=== PATIENT | female | born 1955 | race Caucasian/White ===

== ENCOUNTER 2017-04-17 10:57 | Day surgery (SDC) | payer OTHER ==
[~2017-04-17 10:57] MED LIST: Buffered Lidocaine 0.9% SYRIN* 5 ML/SYR SYRINGE INTRADERM ONE
[2017-04-17] MEDS ORDERED: Buffered Lidocaine 0.9% SYRIN* 5 ML/SYR SYRINGE ONE (11:15)
[2017-04-17] MEDS ORDERED: fentaNYL* 50 MCG/ML 2 ML VIAL (100 MCG VIAL) ONE (11:35)
[2017-04-17] MEDS ORDERED: Midazolam* 1 MG/ML 2 ML VIAL (2 MG) ONE ×2 (11:35)
[2017-04-17] MEDS ORDERED: Propofol* 10 MG/ML 20 ML BTL IV PUSH ONE (11:39)
[2017-04-17] MEDS ORDERED: Ondansetron INJ* 2 MG/ML VIAL ONE (11:39)
[2017-04-17] MEDS ORDERED: Ketorolac INJ* 30 MG/ML 1 ML VIAL ONE (11:39)
[2017-04-17] MEDS ORDERED: Bupivacaine 0.25% SDV* 30 ML ONE (12:27)
[2017-04-17] MEDS ORDERED: DiMENhydriNATE IV* 50 MG/ML VIAL IV PUSH PRN (13:13)
[2017-04-17] MEDS ORDERED: Acetaminophen TAB* 325 MG PO PRN (13:13)
[2017-04-17 15:55] VITALS: BP 116/71
--- NOTE | 2017-04-18 12:12 | OP ---
DATE OF OPERATION: 04/17/17 - SDS DATE OF : 51 SURGEON: Fantasma Moy MD COMMERCIAL BAKING TEACHER: JENNIFER Phillips ANESTHESIOLOGIST: Delores Mo MD ANESTHESIA: Local MAC. PRE-OP DIAGNOSIS: Right carpal tunnel syndrome. POST-OP DIAGNOSIS: Right carpal tunnel syndrome. OPERATIVE PROCEDURE: Right open carpal tunnel release. INDICATIONS: Gemini has had progressive disease. We talked about risks and benefits, she had wanted to proceed. ESTIMATED BLOOD LOSS: 2 mL. COMPLICATIONS: None. FINDINGS: As expected. DESCRIPTION OF PROCEDURE: Gemini was seen in the preoperative holding area. The correct site, side, and procedure were identified. We came back to the operating room. She had some anesthesia and I infiltrated the operative area with 0.25% plain Marcaine. The arm was prepped and draped in the usual sterile fashion. A time-out was performed. I made a standard 2- to 3-cm incision in the standard location for an open carpal tunnel release. Dissection was carried down through the subcutaneous tissue and palmar fascia. Transverse carpal ligament was released just off the radial aspect of the hook of the hamate. The release was completed distally. Proximally, I came back to release the fascia and subcutaneous tissue and retracted this with a Chu retractor, and I then completed the release under direct visualization with the tenotomy scissors. Once all the compression was off the nerve, we irrigated out the wound. Skin was closed with 4-0 nylon suture. Wound was dressed with Xeroform, 4x4, sterile Webril, and an Vu bandage. Tourniquet was deflated. She was taken to the recovery room in stable condition. [id number]/[facility] #: [id number] [facility]
== END 2017-04-17 14:45 | disposition home or self-care (01) ==
LOC: OR 10:57
PROVIDERS: ATTEND Orthopaedic Surgery Hand Surgery
DX: G56.01 Carpal tunnel syndrome, right upper limb (principal); Z87.891 Personal history of nicotine dependence; K21.9 Gastro-esophageal reflux disease without esophagitis
CPT/HCPCS: J1885; J2250; J2405; J2704; J3010

== ENCOUNTER 2018-07-02 14:37 | Inpatient (IN) | payer OTHER ==
--- NOTE | 2018-07-02 17:07 | ED ---
Neurological HPI - HPI Summary HPI Summary: The pt is a 63 y/o F presenting to the ED with a chief complaint of numbness in her L hand. She states that on Monday she had a droopy eye and numbness in her L hand that lasted about four hours. The numbness went away, but the droopiness in her eye did not. She also complains of R arm pain, some blurry vision in her L eye, a steady gait, and a mild headache. Pt denies any fever, chills, erythema of eyes, sore throat, CP, SOB, cough, abdominal pain, N/V, dysuria, hematuria, edema, rash, or dizziness. - History of Current Complaint Chief Complaint: EDNeurologicalDeficit Stated Complaint: NUMBNESS,DROOPY EYE PER PT Time Seen by Provider: 07/02/18 16:47 Hx Obtained From: Patient Onset/Duration: Sudden Onset, Started days ago, Resolved Timing: Intermittent Episodes Lasting: - about four hours Onset Severity: Moderate Current Severity: Mild Pain Intensity: 6 Pain Scale Used: 0-10 Numeric Character: Numbness/Tingling, Visual Changes, Other: - R arm pain Aggravating: Unknown Alleviating: Spontanious Resolution Associated Signs and Symptoms: Positive: Visual Changes - mild blurry vision, droopiness of L eye, Headache. Negative: Unsteady Gait, Dizziness, Pain, Nausea /Vomiting, Fever, Chest Pain, Shortness of Breath - Allergy/Home Medications Allergies/Adverse Reactions: Allergies Allergy/AdvReac Type Severity Reaction Status Date / Time codeine Allergy Severe Nausea And Verified 07/02/18 18:06 Vomiting Sulfa (Sulfonamide Allergy Intermediate GI Upset Verified 07/02/18 18:06 Antibiotics) PMH/Surg Hx/FS Hx/Imm Hx Previously Healthy: Yes Endocrine/Hematology History: Denies: Hx Diabetes Cardiovascular History: Denies: Hx Hypercholesterolemia, Hx Hypertension, Hx Pacemaker/ICD GI History: Reports: Hx Gastroesophageal Reflux Disease - HAVING HEARTBURN, NOT ON ANY MEDICATIONS Comment Only: Other GI Disorders - admitted for pancreatitis 4 YEARS AGO History: Denies: Hx Renal Disease Musculoskeletal History: Reports: Other Musculoskeletal History - LOW BACK PAIN Denies: Hx Osteoporosis, Hx Scoliosis Sensory History: Reports: Hx Contacts or Glasses - GLASSES Denies: Hx Hearing Aid Opthamlomology History: Reports: Hx Contacts or Glasses - GLASSES Neurological History: Denies: Hx Headaches, Other Neuro Impairments/Disorders Psychiatric History: Denies: Hx Panic Disorder - Cancer History Cancer Type, Location and Year: MELANOMA - REMOVED Hx Chemotherapy: No Hx Radiation Therapy: No - Surgical History Surgery Procedure, Year, and Place: appendectomy. LEEP procedure. left ankle - FX - SCREWS. melanoma removal. Rt CARPAL TUNNEL Hx Anesthesia Reactions: No - Immunization History Date of Influenza Vaccine: Nov 2017 Immunizations Up to Date: Yes Infectious Disease History: No Infectious Disease History: Reports: History Other Infectious Disease - HPV Denies: Traveled Outside the [place] in Last 30 Days - Family History Known Family History: Positive: Cardiac Disease Negative: Other - CVA - Social History Alcohol Use: Rare Hx Substance Use: No Substance Use Type: Reports: None Hx Tobacco Use: Yes Smoking Status (MU): Former Smoker Have You Smoked in the Last Year: No Review of Systems Negative: Fever, Chills Positive: Blurred Vision. Negative: Erythema Negative: Sore Throat Negative: Chest Pain Negative: Shortness Of Breath, Cough Negative: Abdominal Pain, Vomiting, Nausea Negative: dysuria, hematuria Positive: Myalgia - R arm pain. Negative: Edema Negative: Rash Neurological: Negative - dizziness Positive: Headache All Other Systems Reviewed And Are Negative: Yes Physical Exam - Summary Physical Exam Summary: Constitutional: Well-developed, Well-nourished, Alert. (-) Distressed Skin: Warm, Dry HENT: Normocephalic; Atraumatic Eyes: Conjunctiva normal Neck: Musculoskeletal ROM normal neck. (-) JVD, (-) Stridor, (-) Tracheal deviation Cardio: Rhythm regular, rate normal, Heart sounds normal; Intact distal pulses; The pedal pulses are 2+ and symmetric. Radial pulses are 2+ and symmetric. (-) Murmur Pulmonary/Chest wall: Effort normal. (-) Respiratory distress, (-) Wheezes, (-) Rales Abd: Soft. (-) Tenderness, (-) Distension, (-) Guarding, (-) Rebound Musculoskeletal: (-) Edema Lymph: (-) Cervical adenopathy Neuro: Alert, Oriented x3, Strength normal, Cranial nerves II-XII are grossly intact. (-) Dysmetria, (-) Nystagmus, (-) Ataxia by finger to nose testing, (-) Sensory deficit. Psych: Mood and affect Normal Triage Information Reviewed: Yes Vital Signs On Initial Exam: Initial Vitals Temp Pulse Resp BP Pulse Ox 99.2 F 74 16 143/101 95 07/02/18 15:01 07/02/18 15:01 07/02/18 15:01 07/02/18 15:01 07/02/18 15:01 Vital Signs Reviewed: Yes - Bakari Coma Scale Best Eye Response: 4 - Spontaneous Best Motor Response: 6 - Obeys Commands Best Verbal Response: 5 - Oriented Coma Scale Total: 15 Diagnostics - Vital Signs Vital Signs Temp Pulse Resp BP Pulse Ox 07/02/18 15:01 99.2 F 74 16 143/101 95 - Laboratory Result Diagrams: 07/02/18 17:08 07/02/18 17:08 Lab Statement: Any lab studies that have been ordered have been reviewed, and results considered in the medical decision making process. - CT Head CTA CT Interpretation Completed By: Radiologist Summary of CT Findings: 1. No significant stenosis of bilateral internal carotid arteries and vertebral arteries. 2. Anatomical variants as described above. ED physician has reviewed this report. Brain CT CT Interpretation Completed By: Radiologist Summary of CT Findings: Acute to subacute lacunar infarct of the right basal ganglia. ED physician has reviewed this report. - EKG 1656 Cardiac Rate: Bradycardia - 55bpm EKG Rhythm: Sinus Bradycardia ST Segment: Normal Ectopy: None Course/Dx - Course Course Of Treatment: The pt is a 63 y/o F presenting to the ED with a chief complaint of numbness in her L hand. She states that on Monday she had a droopy eye and numbness in her L hand that lasted about four hours. She also complains of R arm pain, some blurry vision in her L eye, a steady gait, and a mild headache. Pt denies any fever, chills, erythema of eyes, sore throat, CP, SOB, cough, abdominal pain, N/V, dysuria, hematuria, edema, rash, or dizziness. An EKG at 1656 shows sinus bradycardia at 55bpm. Head CTA shows: 1. No significant stenosis of bilateral internal carotid arteries and vertebral arteries. 2. Anatomical variants as described above. Brain CT shows acute to subacute lacunar infarct of the right basal ganglia. The pt will be admitted to [facility] [place] [facility] with a dx of TIA. - Diagnoses Provider Diagnoses: TIA (transient ischemic attack) Discharge - Sign-Out/Discharge Documenting (check all that apply): Patient Departure - Discharge Plan Condition: Stable Disposition: ADMITTED TO [facility] Referrals: Maria Fernanda Bañuelos MD [Primary Care Provider] - - Attestation Statements Document Initiated by Scribe: Yes Documenting Scribe: Anusha Mcconnell Provider For Whom Scribe is Documenting (Include Credential): Omer Alex MD. Scribe Attestation: Anusha Ely, scribed for Omer Alex MD. on 07/02/18 at 2009. Status of Scribe Document: Ready Consult Consult: 1826 - Spoke with Dr. Parks about the pt's present condition. 1831 - The pt will be admitted under Dr. Jay.
[2018-07-02 17:14] LABS: ABS Basophils 0 10^3/ul (0-0.2); ABS Eosinophils 0.1 10^3/ul (0-0.6); ABS Lymphocytes 1.8 10^3/ul (1.0-4.8); ABS Monocytes 0.5 10^3/ul (0-0.8); ABS Neutrophils 5.2 10^3/ul (1.5-7.7); ABS Nucleated RBC 0 10^3/ul; Eosinophil % 0.9 %; Hematocrit 37 % (33-41); Hemoglobin 12.2 g/dL (12.0-16.0); Lymphocyte % 24.1 %; Mean Corpuscular HGB Conc 33 g/dL (31-36); Mean Corpuscular Hemoglobin 28 pg (27-31); Mean Corpuscular Volume 86 fL (80-97); Mean Platelet Volume 9.4 fL (7.4-10.4); Nucleated Red Blood Cells % 0; Platelet Count 250 10^3/uL (150-450); Red Cell Distribution Width 13 % (10.5-15); White Blood Count 7.6 10^3/uL (3.5-10.8)
[2018-07-02 17:50] LABS: Urine Appearance Clear; Urine Bacteria 1+ (Absent); Urine Bilirubin Negative (Negative); Urine Blood Negative (Negative); Urine Color Straw; Urine Glucose Negative (Negative); Urine Ketones Negative (Negative); Urine Nitrite Negative (Negative); Urine Protein Negative (Negative); Urine Red Blood Cell Trace(0-2/hpf) (Absent); Urine Specific Gravity 1.008 (1.010-1.030); Urine Squamous Epithelial Cell Present (Absent); Urine Urobilinogen Negative (Negative); Urine White Blood Cell Trace(0-5/hpf) (Absent)
[2018-07-02 18:10] LABS: Albumin 4.5 g/dL (3.2-5.2); Calcium 9.6 mg/dL (8.6-10.3); Potassium 3.9 mmol/L (3.5-5.0); Total Bilirubin 0.5 mg/dL (0.2-1.0)
[2018-07-02 18:16] LABS: Albumin/Globulin Ratio 1.8 (1-3); BUN/Creatinine Ratio 23.7 (8-20); EGFR African American 92.4 (>60); EGFR Non-African American 76.4 (>60); Globulin 2.5 g/dL (2-4)
[2018-07-02] MEDS ORDERED: Aspirin 81 mg CHEW TAB* 81 MG TAB.CHEW PO ONE (18:28)
[2018-07-02] MEDS ORDERED: Iohexol 350* (CONTRAST) 500 ML MDV IV ONE (18:40)
[2018-07-02] MEDS ORDERED: Acetaminophen TAB* 325 MG PO PRN (20:26)
[2018-07-02] MEDS ORDERED: Fluticasone NASAL SPRAY 50MCG* 16 gm SPRAY BTL BOTH NARES PRN (21:08)
[2018-07-02] MEDS: Enoxaparin(*) 40 MG/0.4 ML SYR SUBCUT SCH (21:20)
[2018-07-02] MEDS ORDERED: hydrALAZINE IV* 20 MG/ML VIAL IV SLOW PU PRN (21:21)
--- NOTE | 2018-07-03 00:31 | HP ---
CC: Dr. Maria Fernanda Bañuelos * HISTORY AND PHYSICAL: DATE OF ADMISSION: 07/02/18 PROVIDER: JENNIFER Nj PRIMARY CARE PHYSICIAN: Dr. Maria Fernanda Bañuelos. ATTENDING PHYSICIAN: Dr. Adia Tabares * (dictated by JENNIFER Nj). CHIEF COMPLAINT: Left eyelid droop x3 days. HISTORY OF PRESENT ILLNESS: Gemini Curiel is a 63-year-old white female without significant past medical history, who presents to the emergency department with left eyelid droop x3 days. Three days ago, she woke up with a left eyelid ptosis and weakness to her left hand, especially her first, second and third fingers. She did notice that during this time her entire left arm did have weakness because she was unable to keep it elevated over her head without it falling. The weakness to her left UE improved in 4 hours, but her left eyelid ptosis continued. At the time of coming to the emergency department, she noticed that her left eyelid ptosis had improved. She additionally notes some right shoulder pain, which has been ongoing for at least a week and does report that she does a lot of typing at work. She denies headaches, dizziness, visual changes, chest pain, shortness of breath, heart palpitations, abdominal pain, nausea and vomiting. EMERGENCY DEPARTMENT COURSE: When the patient arrived to the emergency department, her vital signs: Temperature 99.2, pulse rate 74, respiratory rate 16, O2 95% on room air, blood pressure 143/101, which later was reduced to 135/ 85, which later changed to 155/85. She was given 324 mg of aspirin and the hospitalists were asked to evaluate the patient for admission. PAST MEDICAL HISTORY: 1. Distant history of depression. 2. Melanoma, status post excision. 3. History of pancreatitis. PAST SURGICAL HISTORY: 1. Appendectomy. 2. ORIF of left ankle. 3. Excision of melanoma. HOME MEDICATIONS: 1. Vitamin D 2000 units p.o. daily. 2. Multivitamin 1 cap daily. 3. Fluticasone nasal spray 1 spray both nares daily p.r.n. nasal congestion. ALLERGIES: SULFA drugs, CODEINE. FAMILY HISTORY: Father at age 62 of colon cancer. He had a history of MA. Mother at age 92 with history of MA. Both siblings are alive and have history of MA. SOCIAL HISTORY: The patient works at [employer] in [employer]. She is not and has 2 children. She quit smoking approximately 40 years ago and had less than 10 year history of smoking. She drinks about 1 drink per week and does not use drugs. Denies drug use. She states that her daughter will be her surrogate medical decision maker. Her name is Maeve Cooepr. Her phone number is [phone]. REVIEW OF SYSTEMS: An 11-point review of systems was completed and all pertinent positives and negatives are above in the HPI. PHYSICAL EXAMINATION GENERAL: A well-developed, well-nourished female who appears stated age lying in hospital stretcher, appearing in no acute distress, tearful at times. HEENT: Head: Normocephalic, atraumatic. Eyes: Visual mota confrontation full. No nystagmus. PERRLA. No ptosis with downward gaze. Sclerae anicteric. EOMI. ENT: Mucous membranes are moist. NECK: Supple without JVP. RESPIRATORY: Lungs are clear to auscultation without crackles, rhonchi or wheezes. CARDIO: Regular rate and rhythm without murmurs, rubs, or gallops. ABDOMEN: Abdomen is soft, nontender, and nondistended. EXTREMITIES: No edema or clubbing. NEURO: Sensation to light touch is intact and equal bilaterally throughout. Cranial nerves II through XII are grossly intact. Negative pronator drift. Strength is 5/5 in all extremities. Has good community center worker strength bilaterally. The patient is alert and oriented x3. DIAGNOSTIC STUDIES/LAB DATA: White blood cell count 7.6, hemoglobin 12.2, hematocrit 37, platelet count 250. Sodium 142, potassium 3.9, chloride 108, carbon dioxide 24, BUN 18, creatinine 0.76, glucose 95. Troponin 0.00. EKG on 07/02/18: Normal sinus rhythm. Rate 65 beats per minute. Isolated T- wave inversion in lead III. No other T wave changes or ST changes compared to previous study. CT of brain on 07/02/18. Impression: "Acute to subacute lacunar infarct of the right basal ganglia." Head and Neck CTA on 07/02/18. Impression: "No acute findings. No significant stenosis of bilateral internal carotid arteries and vertebral arteries. Degenerative changes of the spine." ASSESSMENT AND PLAN: The patient is a 63-year-old white female without significant past medical history who presents to the emergency department with 3 days of left eyelid ptosis and prior left upper extremity weakness that lasted 4 hours. The patient will be admitted in observation for: 1. Ischemic cerebrovascular accident. Acute or subacute lacunar infarct of her basal ganglia confirmed with brain CT. A loading dose of aspirin was given in the emergency department and 81 mg will be continued daily during admission. 80 mg of Lipitor has been initiated. Fasting LDL, hemoglobin A1c, echo with bubble study and ultrasound of the carotid arteries has been ordered for workup. Dr. Parks has been consulted regarding this patient. Dr. Parks discussed the patient with me this evening and stated that he agrees with this plan. He will decide if a month trial of Plavix will be appropriate depending on the results of the lipid panel. Every 2 hour neuro checks have been ordered for this evening. Nursing dysphagia evaluation has been ordered and the patient has been placed n.p.o. until that has been completed. The patient will be placed on telemetry. 2. Hypertension. The patient does not have history of hypertension, does not take antihypertensive medications. Continue to monitor. Hydralazine will be ordered first if BP over 170. 3. FEN: After the patient passes nursing dysphagia evaluation, a regular diet will be appropriate. Electrolytes are within normal limits. No fluids needed. 4. Code status: The patient is full code. 5. DVT prophylaxis: The patient has a DVT risk score of 2 and has been started on Lovenox 40 mg subcu daily. TIME SPENT: Approximately 50 minutes was spent on this admission, approximately half of that time was spent at bedside. This case has been reviewed by my attending, Dr. Adia Tabares, and she agrees with this plan of care. JENNIFER [place] [id number]/[facility] #: [id number]
[2018-07-03 06:00] LABS: ABS Basophils 0 10^3/ul (0-0.2); ABS Eosinophils 0.1 10^3/ul (0-0.6); ABS Lymphocytes 1.2 10^3/ul (1.0-4.8); ABS Monocytes 0.5 10^3/ul (0-0.8); ABS Neutrophils 3.7 10^3/ul (1.5-7.7); ABS Nucleated RBC 0 10^3/ul; Eosinophil % 1.9 %; Hematocrit 37 % (33-41); Hemoglobin 12.1 g/dL (12.0-16.0); Lymphocyte % 22.5 %; Mean Corpuscular HGB Conc 33 g/dL (31-36); Mean Corpuscular Hemoglobin 28 pg (27-31); Mean Corpuscular Volume 86 fL (80-97); Mean Platelet Volume 9.1 fL (7.4-10.4); Nucleated Red Blood Cells % 0; Platelet Count 236 10^3/uL (150-450); Red Blood Count 4.31 10^6 /uL (3.70-4.87); Red Cell Distribution Width 13 % (10.5-15); White Blood Count 5.5 10^3/uL (3.5-10.8)
[2018-07-03 06:21] LABS: BUN/Creatinine Ratio 21.2 (8-20); Calcium 9.1 mg/dL (8.6-10.3); EGFR African American 108.8 (>60); EGFR Non-African American 89.9 (>60); HDL Cholesterol 51.4 mg/dL; Potassium 3.5 mmol/L (3.5-5.0)
[2018-07-03] MEDS: Aspirin 81 mg CHEW TAB* 81 MG TAB.CHEW PO SCH (07:37)
[2018-07-03] MEDS: Cholecalciferol TAB* 1000 UNITS PO SCH (07:37)
[2018-07-03] MEDS: Multivitamins/Minerals TAB PO SCH (07:37)
[2018-07-03] MEDS ORDERED: Perflutren Lipid Microsphere* 3 ML VIAL ONE (08:56)
--- NOTE | 2018-07-03 12:47 | ECHO ---
Patient: YEFRI ESPINO [facility] Rec#: [id number] : 1955 Date: 07/03/2018 Age: 63y Height: 163 cm / 64.2 in Weight: 73.9 kg / 162.9 lbs Sex: F BSA: 1.8 Room#: [facility] Admit Date#: 07/02/2018 Type: Inpatient Referring: Nahomi Vinson Reading: Amandeep Whelan MD Ribbon Weaver: Deepika Camacho RN RDCS CC: Maria Fernanda Bañuelos MD Transthoracic Echocardiogram Indication: CVA BP: 105/62 HR: 51 Rhythm: Bradycardia Findings History: No significant past medical history Technical Comments: The study quality is fair. Left Ventricle: The left ventricular chamber size is normal. Global left ventricular wall motion and contractility are within normal limits. There is normal left ventricular systolic function. The estimated ejection fraction is 55-60%. There is no consistent Doppler evidence of clinically significant diastolic dysfunction. Left Atrium: The left atrial chamber size is normal. Right Ventricle: The right ventricle is slightly dilated. The right ventricular global systolic function is normal. Right Atrium: The right atrial cavity size is normal. The bubble study is negative. A patent foramen ovale is not demonstrated with color Doppler and agitated contrast. Aortic Valve: The aortic valve appears bicuspid. The aortic valve leaflets are mildly thickened. There is trace to mild aortic regurgitation. There is mild aortic stenosis. The mean gradient of the aortic valve is 11 mmHg. The aortic valve area, by peak velocities, is calculated at 1.4 cm2. The highest aortic valve velocity was obtained with the standard probe from the A5C view. Mitral Valve: The mitral valve leaflets are mildly thickened. There is trace to mild mitral regurgitation. There is no evidence of mitral stenosis. Tricuspid Valve: The tricuspid valve leaflets are normal. There is trace to mild tricuspid regurgitation. Unable to estimate the right ventricular systolic pressure. There is no tricuspid stenosis. Pulmonic Valve: The pulmonic valve appears normal. There is a trace pulmonic regurgitation. There is no pulmonic stenosis. Pericardium: There is no significant pericardial effusion. Aorta: There is mild dilatation of the ascending aorta. There is no dilatation of the aortic arch. There is no dilation of the aortic root. Pulmonary Artery: The main pulmonary artery appears normal. Venous: The inferior vena cava appears normal in size. There is a greater than 50% respiratory change in the inferior vena cava dimension. Contrast: Normal saline was used as contrast for the bubble study. Images 53 and 54. Definity was used to enhance imaging. A total of 3 ml of diluted Definity was given IV. Summary: There was not any prior study for comparison. Conclusions Global left ventricular wall motion and contractility are within normal limits. There is normal left ventricular systolic function. The estimated ejection fraction is 55-60%. A patent foramen ovale is not demonstrated with color Doppler and agitated contrast. The aortic valve appears bicuspid. There is trace to mild aortic regurgitation. There is mild aortic stenosis. The mean gradient of the aortic valve is 11 mmHg. There is trace to mild mitral regurgitation. There is trace to mild tricuspid regurgitation. Unable to estimate the right ventricular systolic pressure. There is no significant pericardial effusion. Measurements Name Value Normal Range RVIDd (AP) 2D 3.4 cm (0.9 - 2.6) RVDdMajor (2D) 3.6 cm (2.2 - 4.4) RAd ISD 4CH 4.8 cm (3.4 - 4.9) RA (A4C)W 2.7 cm (2.9 - 4.6) IVSd (2D) 0.9 cm (0.6 - 1) LVPWd (2D) 0.9 cm (0.6 - 1) LVIDd (2D) 4.5 cm (3.6 - 5.4) LVIDs (2D) 2.7 cm - LV FS (2D) 40 % (25 - 45) Aortic Annulus 1.9 cm (1.4 - 2.6) Ao root diameter (2D) 2.8 cm (2.1 - 3.5) Ascending Ao 3.5 cm (2.1 - 3.4) Aortic arch 2.3 cm (1.8 - 3.4) LA dimension (AP) 2D 3.9 cm (2.3 - 3.8) LAd ISD 4CH 5 cm (2.9 - 5.3) LA ISD 4CH W 3.4 cm (2.5 - 4.5) Name Value Normal Range LA ESV BP (A/L) index 28.1 ml/m2 - Name Value Normal Range MV E-wave Vmax 0.72 m/sec - MV deceleration time 292 msec - MV A-wave Vmax 0.83 m/sec - MV E:A ratio 0.9 ratio - LV septal e' Vmax 0.05 m/sec - LV lateral e' Vmax 0.09 m/sec - LV E:e' septal ratio 14.4 ratio - LV E:e' lateral ratio 8 ratio - Name Value Normal Range AV Vmax 2.3 m/sec - AV VTI 58.5 cm - AV peak gradient 22 mmHg - AV mean gradient 11 mmHg - LVOT diameter 2 cm - LVOT Vmax 0.99 m/sec - LVOT VTI 24.1 cm - LVOT peak gradient 4 mmHg - LVOT mean gradient 3 mmHg - DOI (VTI) 0.41 ratio - DOI (Vmax) 0.43 ratio - HARESH (continuity Vmax) 1.4 cm2 - HARESH (continuity VTI) 1.3 cm2 - VIPIN Vmax 0.48 m/sec - Name Value Normal Range IVC diameter 1.7 cm - Name Value Normal Range PV Vmax 0.7 m/sec -
--- NOTE | 2018-07-03 16:39 | PN ---
Subjective Date of Service: 07/03/18 Interval History: Patient seen today, she is doing well denies any weakness. Taking po well. Neurology did see the patient late this afternoon, and recommended VIVIENNE and Loop recorder. I was not able to set up VIVIENNE at this hour. Will schedule for VIVIENNE in am. Will try to set up loop recorder in am xt# [id number] Past Medical History: Unchanged from Admission Objective Active Medications: Acetaminophen (Tylenol Tab*) 650 mg PO Q4H PRN PRN Reason: FEVER/PAIN Aspirin (Aspirin 81 Mg Chew Tab*) 81 mg PO DAILY [facility] Last Admin: 07/03/18 07:37 Dose: 81 mg Atorvastatin Calcium (Lipitor*) 80 mg PO 1700 [facility] Last Admin: 07/03/18 16:33 Dose: 80 mg Cholecalciferol (Vitamin D Tab*) 2,000 units PO QAM [facility] Last Admin: 07/03/18 07:37 Dose: 2,000 units Enoxaparin Sodium (Lovenox(*)) 40 mg SUBCUT Q24H [facility] Last Admin: 07/02/18 21:20 Dose: 40 mg Fluticasone Propionate (Flonase Nasal [place] 50mcg*) 1 spray BOTH NARES DAILY PRN PRN Reason: CONGESTION Hydralazine HCl (Apresoline Iv*) 5 mg IV SLOW PU Q6H PRN PRN Reason: SYSTOLIC BP GREATER THAN: Multivitamins/Minerals (Theragran/Minerals Tab*) 1 tab PO QAM [facility] Last Admin: 07/03/18 07:37 Dose: 1 tab Oxygen Devices in Use Now: None Appearance: Awake, alert No distress Eyes: No Scleral Icterus, - - EOMI Ears/Nose/Mouth/Throat: NL Teeth, Lips, Gums, Mucous Membranes Moist Neck: NL Appearance and Movements; NL JVP, Trachea Midline Respiratory: Symmetrical Chest Expansion and Respiratory Effort, Clear to Auscultation Cardiovascular: NL Sounds; No Murmurs; No JVD, RRR Abdominal: NL Sounds; No Tenderness; No Distention Extremities: No Edema Skin: No Rash or Ulcers Neurological: Alert and Oriented x 3 Result Diagrams: 07/03/18 05:45 07/03/18 05:45 Microbiology and Other Data: Microbiology 07/02/18 17:32 Urine Culture - Final Urine No Growth (<1,000 CFU/mL) Assess/Plan/Problems-Billing Assessment: 63 y/o male no distress. admitted for right basal ganglia infarct manifested with left arm weakness and left eyelid droop. Resolved - Patient Problems (1) CVA (cerebral vascular accident) Current Visit: Yes Status: Acute Code(s): I63.9 - CEREBRAL INFARCTION, UNSPECIFIED SNOMED Code(s): 007873749 Comment: - Neuro consult appreciated - MRI did shows right sided parietal infarct (*Please make note that the report state left side, it should be right sided) - I will get VIVIENNE in am and will try to schedule Loop recorder procedure in am as per Neurology recommendations (2) DVT prophylaxis Current Visit: Yes Status: Acute Code(s): OMQ2212 - SNOMED Code(s): 840699669 Comment: - Lovenox 40 mg SQ daily
[2018-07-03] MEDS ORDERED: Atorvastatin* 80 MG TAB PO SCH (17:00)
--- NOTE | 2018-07-03 20:11 | CONS ---
CONSULTATION REPORT: DATE OF CONSULT: 07/03/18 PATIENT OF: Dr. Dooley and Dr. Bañuelos. HISTORY OF PRESENT ILLNESS: This is a 63-year-old woman being evaluated for new onset of left eyelid droopiness and left hand numbness and weakness. The weakness of the left arm lasted about 4 hours, but the facial weakness in the eyelid lasted 3 days' time and she was admitted yesterday for this. She has had a past history significant for 1 year ago acute episode lasting about 4 hours of right hand weakness that was acute. She had right carpal tunnel, symptoms of numbness at this time, but she did not do anything to produce this weakness and it is acute and resolved quickly and did not occur at other times with the carpal tunnel release. Relatively, significant weakness in the first 3 fingers of the hand. PAST MEDICAL HISTORY: She has a history of depression, past history of melanoma and pancreatitis. PAST SURGICAL HISTORY: She is status post appendectomy, ORIF left ankle, excision of melanoma. MEDICATIONS AT HOME: Include vitamin D. ALLERGIES: She is allergic to SULFA DRUGS and CODEINE. FAMILY HISTORY: Her father of colon cancer and had a history of heart attack. Mom at 92 with a history of heart attack. SOCIAL HISTORY: She worked at [employer] in [employer] and got and has 2 children. PHYSICAL EXAM: On exam, she is alert and oriented with minimal speech and comprehension. Cranial nerves II through XII were intact other than there is some minor facial asymmetry with her nasolabial fold being less distinct on the left than the right. This was subtle with daughter notices it is unclear whether it is new or old, there is no clear ptosis now. Motor exam revealed normal tone and strength. There is no pronator drift. Gait is normal. Sensation intact to light touch. Chest: Clear. Cardiovascular: Regular rate and rhythm. Abdomen is soft with positive bowel sounds. ASSESSMENT AND PLAN: Her CT scan I reviewed and in conjunction with the MRI scan, I think that the finding of basal ganglia is probably just secondary to large perivascular spaces. The MRI scan report is different than my reading. I think that there is a subcortical high right frontal acute lesion most likely acute to subacute stroke and then on the left, there are some subcortical lesions that appear on the FLAIR study and more likely chronic. Her head and neck CTA was normal as was her echo. Lab workup include normal CBC, CMP. Her LDL was 113 and she is begun on a statin and aspirin and will be started on Plavix as discussed with Dr. Dooley. We also discussed with him and the patient's daughter in detail that the aspirin and Plavix should be continued for a month than just aspirin by itself. She has concern that she is having cortical or subcortical, but immediately subcortical strokes bilaterally that it is conceivable that this is cardioembolic phenomenon and I am recommending transesophageal echo as well as loop recorder and the hospitalist will set this up and I will be seeing back in a month to begin following. Thank you for sharing her case. [id number]/[facility] #: [id number] RIKKI
[2018-07-03] MEDS: Enoxaparin(*) 40 MG/0.4 ML SYR SUBCUT SCH (20:13)
[2018-07-04] MEDS: Cholecalciferol TAB* 1000 UNITS PO SCH (07:35)
[2018-07-04] MEDS: Multivitamins/Minerals TAB PO SCH (07:35)
[2018-07-04] MEDS: Aspirin 81 mg CHEW TAB* 81 MG TAB.CHEW PO SCH (07:35)
[2018-07-04] MEDS ORDERED: Naloxone* 0.4 MG/ML 1 ML VIAL ONE (10:19)
[2018-07-04] MEDS ORDERED: Flumazenil* 0.1 MG/ML 5 ML MDV ONE (10:19)
[2018-07-04] MEDS ORDERED: Midazolam* 1 MG/ML 5 ML VIAL (5 MG) ONE ×2 (10:19→10:22)
[2018-07-04] MEDS ORDERED: fentaNYL* 50 MCG/ML 2 ML VIAL (100 MCG VIAL) ONE (10:19)
[2018-07-04] MEDS ORDERED: Lidocaine 2% VISCOUS* 15 ML UDC ONE (10:19)
[2018-07-04 15:38] VITALS: BP 129/77
--- NOTE | 2018-07-04 16:18 | PN ---
Work Excuse - Work Note Work Note: The above employee has been evaluated on 07/04/18. The physician has instructed the employee concerning further work as described below. Work Status: [Patient to be out of work from 07/02/18 to 07/11/18] Alex Dooley MD [id number]
--- NOTE | 2018-07-04 22:59 | PN ---
NEUROLOGICAL FOLLOWUP: DATE OF SERVICE: 07/04/18 PATIENT OF: Dr. Maria Fernanda Bañuelos and Dr. Dooley. HISTORY: The patient has no further weakness, numbness, no headaches. She has no complaints at this point. Her medications currently are aspirin 81 mg daily , 80 mg of Lipitor daily, Lovenox subcu, . I spoke to Dr. Isaac about the transesophageal echo, report is not in the chart yet. The bubble study and transesophageal echo is positive for a small PFO. There apparently was a bicuspid aortic valve as well as a small septal aneurysm. 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 It is unclear by this echo whether she needs to be on an everyday chronic basis. PHYSICAL EXAMINATION: On exam, temperature 97.4, pulse 53, respirations 16, blood pressure 102/63. She is alert and oriented with normal speech and comprehension. Cranial nerves II through XII are intact. Motor exam revealed normal tone and strength. Chest clear. Cardiovascular: Regular rate and rhythm. ASSESSMENT AND PLAN: I discussed with Gemini and her daughter the results of the echo in detail, mainly the implications that there may be on echo a cause for cardioembolic clot that had to cause a stroke. We discussed that the many people have small PFO, this is not conclusive by any means, but there are other things currently on echo that caused Dr. Isaac concerned and the basis of her recommendation. I discussed this in depth clinically. She may have had a stroke last year as well and that her her strokes may be coming from her heart. Given this echo and that she travels a lot it would just make sense for her to be on anticoagulation at this point. We will be getting a loop recorder; and if she has a AFib, this would be a chronic ongoing recommendation. If there is no AFib then in 6 months to a year, we would have to reassess and make decision based on how much she is traveling and other issues whether we want her on going anticoagulation at that point or whether she should be switched to platelet therapy. Thank you for sharing her case. [id number]/[facility] #: [id number] RIKKI
--- NOTE | 2018-07-05 01:06 | DS ---
CC: Dr. Isaac; Dr. Maria Fernanda Bañuelos * DISCHARGE SUMMARY: DATE OF ADMISSION: 07/03/18 DATE OF DISCHARGE: 07/04/18 PRIMARY CARE PROVIDER: Maria Fernanda Bañuelos MD. FINAL DISCHARGE DIAGNOSES: 1. Right basal ganglia acute lacunar infarct. 2. Hyperlipidemia. HOSPITAL COURSE: The patient presented to [facility] on the night of 07/02/18, to the emergency room, for left eyelid droop for 3 days associated with left upper extremity weakness. The symptom resolved and she did not seek any medical attention at the onset of her symptoms. However, shortly after, she called her primary care office on the first business day, on Monday, with the symptoms and she was directed to go to the emergency room, which explained the delay in her presentation, as the patient waited to discuss her symptom with her primary on the . In the emergency room, on evaluation, she did not have any residual deficit. However, a CT scan in the ER did show acute to subacute lacunar infarct in the right basal ganglia without any other anomaly, including normal EKG, normal cardiac enzyme, and normal electrolytes. She was admitted to the medicine service under the observation status for CVA. She was transitioned to an inpatient as the patient did require further workup. Neurology consultation was obtained with Dr. Parks and I proceeded with obtaining MRI of the brain for full delineation of the extent of her infarct. She remained stable. Her MRI of the brain was done and it did show positive infarct on the cortex of the right postcentral gyrus of the parietal lobe. Please make note that the MRI report states it is on the left side of the postcentral gyrus; I confirmed with Neurology that it was reported in error on the left, the actual stroke is on the right. With those findings, it was recommended to proceed with transesophageal echocardiogram given the fact that her transthoracic echo did not reveal any abnormality. However, the VIVIENNE, which was done, did show, pending final report, after discussion with Dr. Isaac that she does have a right to left shunt, which raised the concern of PFO or small AV septal defect. Therefore, she will be started on full anticoagulation. I discussed the medication with the patient and the daughter, and agreed on Xarelto versus warfarin and to discuss with her primary whether she elects to revert back to warfarin. For now, a prescription for Xarelto 20 mg daily was initiated and prescribed. Also, I recommended to have a loop recorder and was scheduled to have done in the morning. However, the patient elected to do it as an outpatient and an appointment was set up with Dr. Isaac, I believe, from the [facility] on 08/06/18 at 12:30 p.m. With the above finding and recommendation, the patient is deemed stable for discharge. PHYSICAL EXAMINATION ON DISCHARGE: Temperature 98.3, pulse 66, respiratory rate 16, satting 97%, blood pressure 129/77. General: She is awake, alert, pleasant, in no apparent distress. Head and Neck: Normocephalic, atraumatic. Supple. Extraocular muscles intact. No JVD. Moist mucous membranes. Lungs: Clear to auscultation bilaterally. Cardiovascular: S1 and S2. Regular rate and rhythm. Abdomen: Positive bowel sounds. Soft, nontender, and nondistended. Extremities: No pitting edema. No clubbing. No cyanosis. INTERPRETER TRANSLATOR: There is no motor, focal or sensory deficit. No ptosis. DIAGNOSTIC STUDIES/LAB DATA: She had multiple CBC, fairly unremarkable. Chemistry benign, with normal electrolyte. Lipid panel was significant for LDL of 113, A1c 5.4. She had CAT scan of the brain on 07/02/18, revealed subacute infarct in the left basal ganglia. CTA of the head and neck did not reveal any intracerebral aneurysm or stenosis. No carotid stenosis was appreciated. Transthoracic echocardiogram revealed an ejection fraction within the normal limits with an EF of 55% to 60%, no valvular disease. On the transthoracic study, a patent foramen ovale was not appreciated. This was followed by a brain MRI on 07/03/18, which confirmed the presence of the right cerebral infarct, not on the left as stated in the report. The transesophageal echocardiogram did show evidence of right to left shunt. DISCHARGE MEDICATIONS: 1. Xarelto 20 mg daily. 2. Lipitor 20 mg at night. DISCHARGE RECOMMENDATION: To follow up with her primary care in 1 to 2 weeks for medication adjustment and follow up on chemistry and further recommendations regarding anticoagulation. Follow up with Cardiology on 08/06/18 for initial consultation for loop recorder. DISPOSITION: The patient will be released home in stable condition. TIME SPENT: Total time on discharge was 35 minutes. [id number]/[facility] #: [id number] [facility]ITAL[facility]ha
== END 2018-07-04 16:29 | disposition home or self-care (01) | DRG 65 ==
LOC: ED 14:37 → MEDTELE 20:26 → OBSVTOIN 07-03 10:00
PROVIDERS: ADMIT Internal Medicine; ATTEND Internal Medicine
PROC: B24BZZ4 Ultrasonography of Heart with Aorta, Transesophageal (ICD-10-PCS; principal; 2018-07-04)
DX: I63.81 Other cerebral infarction due to occlusion or stenosis of small artery (principal); Q21.1 Atrial septal defect; E78.5 Hyperlipidemia, unspecified; H02.402 Unspecified ptosis of left eyelid; M25.511 Pain in right shoulder; F32.9 Major depressive disorder, single episode, unspecified; G83.24 Monoplegia of upper limb affecting left nondominant side; K21.9 Gastro-esophageal reflux disease without esophagitis; R40.2412 Glasgow coma scale score 13-15, at arrival to emergency department; Z80.0 Family history of malignant neoplasm of digestive organs; Z90.89 Acquired absence of other organs; Z85.820 Personal history of malignant melanoma of skin; Z79.01 Long term (current) use of anticoagulants; Z88.2 Allergy status to sulfonamides; Z88.5 Allergy status to narcotic agent; Z82.49 Family history of ischemic heart disease and other diseases of the circulatory system; Z87.891 Personal history of nicotine dependence
CPT/HCPCS: 36415; 70450; 70496; 70498; 70551; 80048; 80053; 80061; 81003; 81015; 83036; 83605; 84484; 85025; 87086; 93005; 93306; 99284; A9270-GY; C8929; G0378; J1650; J2250; J2310; J3010; Q9967